=== PATIENT | male | born 1955 | race Caucasian/White ===

== ENCOUNTER 2019-11-11 06:10 | Inpatient (IN) | payer MEDICARE, MEDICAID ==
[2019-11-11] VITALS (45 sets, daily range): BP systolic 103–186; BP diastolic 45–132
[~2019-11-11] VITALS: Ht 154.9 cm; Wt 75.7 kg
[2019-11-11] MEDS ORDERED: LACTATED RINGERS 1,000 ML IV SCH (07:40)
[2019-11-11] MEDS ORDERED: ATOR10TA69 PO (08:09)
[2019-11-11] MEDS ORDERED: ESCI20TA43 PO (08:09)
[2019-11-11] MEDS ORDERED: MECL-159 PO (08:09)
[2019-11-11] MEDS ORDERED: TOPI50TA24 PO (08:09)
[2019-11-11] MEDS ORDERED: LOSA50TA41 PO (08:09)
[2019-11-11] MEDS ORDERED: ACET-2708 PO (08:09)
[2019-11-11] MEDS ORDERED: THROMBIN (BOVINE) 5000 UNITS/VIAL TOP ONE (09:48)
[2019-11-11] MEDS ORDERED: LIDOCAINE HCL/EPINEPHRINE 1%-EPI 1:100,000 20 ML VIAL ONE (09:48)
[2019-11-11] MEDS ORDERED: MORPHINE SULFATE 4 MG/ML CPJ (NOT FOR IM USE) IV PRN (10:30)
[2019-11-11] MEDS ORDERED: HYDROCODONE/ACETAMINOPHEN 5/325MG TABLET PO PRN (10:30)
[2019-11-11] MEDS ORDERED: FENTANYL CITRATE/PF 50MCG/ML 2ML VIAL ONE (11:10)
[2019-11-11] MEDS ORDERED: MIDAZOLAM HCL 2 MG/2 ML VIAL ONE (11:11)
[2019-11-11] MEDS ORDERED: GLYCOPYRROLATE 0.2 MG/ML 2ML VIAL ONE ×2 (11:11→13:07)
[2019-11-11] MEDS ORDERED: PROPOFOL 200MG/20ML VIAL IV ONE (11:11)
[2019-11-11] MEDS ORDERED: NEOSTIGMINE METHYLSULFATE 1MG/ML 10 ML VIAL ONE (11:11)
[2019-11-11] MEDS ORDERED: ROCURONIUM BROMIDE 10MG/ML VIAL 5ML IV ONE (11:11)
[2019-11-11] MEDS ORDERED: ONDANSETRON HCL 4MG/2ML INJ ONE (11:28)
[2019-11-11] MEDS ORDERED: DEXAMETHASONE 4MG/ML 1ML VIAL ONE (11:28)
[2019-11-11] MEDS ORDERED: HYDROMORPHONE HCL/PF 2MG/ML (OR) ONE (11:29)
[2019-11-11] MEDS ORDERED: HYDROMORPHONE PCA 10MG/50ML IV PRN (13:45)
[2019-11-11] MEDS ORDERED: NALOXONE INJ IV PRN (13:45)
[2019-11-11] MEDS ORDERED: DIPHENHYDRAMINE INJ IV PRN (13:45)
[2019-11-11] MEDS ORDERED: ONDANSETRON INJ IV PRN (13:45)
[2019-11-11] MEDS: DEXT 5%/LACTATED RINGERS 1,000 ML IV SCH (13:56)
[2019-11-11] MEDS: DEXAMETHASONE 4MG/ML 1ML VIAL IV SCH ×3 (13:57→23:18)
[2019-11-11] MEDS ORDERED: CEFAZOLIN SODIUM 1000MG/VIAL IV SCH (14:00)
[2019-11-11] MEDS ORDERED: NICARDIPINE 100 MG in SODIUM CHLORIDE 0.9% 60 ML IV PRN (14:00)
[2019-11-11] MEDS: CEFAZOLIN 1000MG PREMIX 50 ML IV SCH ×2 (14:52→22:01)
[2019-11-11] MEDS ORDERED: IPRATROPIUM/ALBUTEROL 0.5-3(2.5)MG/3ML NEB HHN PRN (15:45)
[2019-11-11 19:15] LABS: HEMATOCRIT. 40.8 % (42.0-52.0); HEMOGLOBIN. 13.3 g/dL (14.0-18.0); MEAN CORPUSCULAR VOLUME 88.9 fL (80.0-94.0); MEAN PLATELET VOLUME 8.3 fl (7.4-10.4); PLATELET 189 x1000/uL (130-400); RED BLOOD CELL COUNT 4.59 mill/uL (4.7-6.1); RED CELL DISTRIBUTION WIDTH 14.2 % (11.6-14.6)
[2019-11-11 19:25] LABS: CHLORIDE 112 mEq/L (98-107)
[2019-11-11 19:42] LABS: PLATELET ESTIMATE NORMAL
[2019-11-12] VITALS (96 sets, daily range): BP systolic 95–142; BP diastolic 29–88
[2019-11-12] MEDS: DEXT 5%/LACTATED RINGERS 1,000 ML IV SCH ×3 (00:07→22:25)
[2019-11-12] MEDS: CEFAZOLIN 1000MG PREMIX 50 ML IV SCH ×3 (05:23→21:07)
[2019-11-12] MEDS: DEXAMETHASONE 4MG/ML 1ML VIAL IV SCH ×2 (05:23→11:40)
[2019-11-12] MEDS ORDERED: THROAT LOZENGES-BENZOCAINE/MENTH/CETYLPYRD CL LOZENGES MM PRN (11:00)
[2019-11-12] MEDS ORDERED: HYDRALAZINE 20MG/ML VIAL IV PRN (17:15)
[2019-11-12] MEDS ORDERED: DEXTROSE 50% WATER 50ML SYRINGE IV PRN (18:15)
[2019-11-12] MEDS: BLOOD SUGAR DIAGNOSTIC STRIP TEST SCH (21:07)
[2019-11-12] MEDS: INSULIN LISPRO 100 UNITS/ML SUBCUT SCH (21:08)
[2019-11-13] VITALS (14 sets, daily range): BP systolic 121–151; BP diastolic 62–86
[2019-11-13] MEDS: CEFAZOLIN 1000MG PREMIX 50 ML IV SCH (06:20)
[2019-11-13] MEDS: BLOOD SUGAR DIAGNOSTIC STRIP TEST SCH ×2 (07:20→12:20)
[2019-11-13] MEDS: INSULIN LISPRO 100 UNITS/ML SUBCUT SCH ×2 (08:56→12:50)
[2019-11-13] MEDS: DEXT 5%/LACTATED RINGERS 1,000 ML IV SCH (11:26)
[2019-11-13 11:39] LABS: BASOPHILS % 0.1 % (0.0-2.0); HEMATOCRIT. 37.9 % (42.0-52.0); HEMOGLOBIN. 12.6 g/dL (14.0-18.0); LYMPHOCYTES % 11.5 % (20.0-50.0); MEAN CORPUSCULAR HEMOGLOBIN 29.3 pg (28.0-32.0); MEAN CORPUSCULAR VOLUME 87.9 fL (80.0-94.0); MEAN PLATELET VOLUME 8.6 fl (7.4-10.4); MONOCYTES % 7.2 % (2.0-8.0); NEUTROPHILS % 81.2 % (40.0-76.0); PLATELET 213 x1000/uL (130-400); RED BLOOD CELL COUNT 4.31 mill/uL (4.7-6.1); RED CELL DISTRIBUTION WIDTH 14.1 % (11.6-14.6)
[2019-11-13 11:51] LABS: CHLORIDE 114 mEq/L (98-107)
[2019-11-13] MEDS ORDERED: HYDRALAZINE 5 MG in SODIUM CHLORIDE 0.9% 49.75 ML IV PRN (15:00)
[2019-11-13] MEDS ORDERED: HYDR-4001 MT (16:55)
== END 2019-11-13 17:33 | DRG 471 ==
LOC: OR 06:10 → MICUNO 06:11 → 6EST 11-13 04:30
PROVIDERS: ADMIT Internal Medicine; ATTEND Internal Medicine
PROC: 0RG20A0 Fusion of 2 or more Cervical Vertebral Joints with Interbody Fusion Device, Anterior Approach, Anterior Column, Open Approach (ICD-10-PCS; principal; 2019-11-11)
PROC: 0RB30ZZ Excision of Cervical Vertebral Disc, Open Approach (ICD-10-PCS; 2019-11-11)
DX: M48.02 Spinal stenosis, cervical region (principal); G82.50 Quadriplegia, unspecified; M47.12 Other spondylosis with myelopathy, cervical region; M47.22 Other spondylosis with radiculopathy, cervical region; D64.9 Anemia, unspecified; G89.29 Other chronic pain; E11.65 Type 2 diabetes mellitus with hyperglycemia; R26.9 Unspecified abnormalities of gait and mobility; D72.829 Elevated white blood cell count, unspecified; I10 Essential (primary) hypertension; Z87.891 Personal history of nicotine dependence
CPT/HCPCS: 36415; 72040; 72141; 76000; 80048; 82962; 83036; 85025; 86850; 86900; 88304; 88311; 95863; 95925; 95926; 95928; 95929; 97116; 97163; 97166; C1713; J0360; J0690; J1100; J1170; J1815; J2250; J2405; J2704; J2710; J3010; J3490; J7121; L0172